=== PATIENT | female | born 1965 | race Caucasian/White ===

== ENCOUNTER 2022-05-28 12:39 | Inpatient (IN) | payer OTHER ==
[~2022-05-28] VITALS: Ht 165.1 cm; Wt 144.7 kg
[2022-05-28 12:42] VITALS: BP_SYST 139
[2022-05-28 13:32] LABS: CALCIUM 8.2 mg/dL (8.4-11.0); CREATININE 0.56 mg/dL (0.55-1.30)
[2022-05-28 13:36] LABS: BASOPHILS % (AUTO) 0.3 % (0.0-2.0); EOSINOPHILS # (AUTO) 0.3 K/uL (0.0-0.4); EOSINOPHILS % (AUTO) 3.4 % (0.0-4.0); HEMATOCRIT 32.4 % (36-48); HEMOGLOBIN 10.5 g/dL (12.0-16.0); LYMPHOCYTES # (AUTO) 0.6 K/uL (1.0-5.5); LYMPHOCYTES % (AUTO) 6.3 % (20.5-51.5); MEAN CORPUSCULAR HEMOGLOBIN 28 pg (27-31); MEAN CORPUSCULAR HGB CONC 32 % (32-36); MEAN CORPUSCULAR VOLUME 85 fL (79.0-98.0); MONOCYTES # (AUTO) 0.7 K/uL (0.0-1.0); MONOCYTES % (AUTO) 7.5 % (1.7-9.3); NEUTROPHILS # (AUTO) 7.5 K/uL (1.8-7.7); NEUTROPHILS % (AUTO) 82.5 % (40.0-70.0); PLATELET COUNT (AUTO) 508 K/uL (130-430); RED BLOOD CELL COUNT(AUTO) 3.81 MIL/uL (4.2-6.2); WHITE BLOOD COUNT (AUTO) 9.2 K/uL (4.8-10.8)
[2022-05-28 13:37] LABS: ALBUMIN 2.2 g/dL (3.4-4.8); TOTAL BILIRUBIN 0.5 mg/dL (0.0-1.0)
[2022-05-28] MEDS ORDERED: PIPERACILLIN/TAZO 3.375 GM in NS 50 ML IV ONE (14:00)
[2022-05-28] MEDS ORDERED: *LOVENOX0.75MG/KG Q12H/PHARMACY XX ONE (15:30)
[2022-05-28] MEDS ORDERED: PIPERACILLIN/TAZOBACTAM 3.375 GM/VIAL (ZOSYN) IV ONE ×2 (16:24→22:05)
[2022-05-28 17:51] LABS: BILIRUBIN,URINE NEGATIVE (NEGATIVE); BLOOD, URINE NEGATIVE (NEGATIVE); CLARITY/URINE CLEAR (CLEAR); COLOR,URINE YELLOW (YELLOW); GLUCOSE,URINE NEGATIVE (NEGATIVE); KETONES,URINE TRACE (NEGATIVE); LEUKOCYTE ESTERASE ,URINE NEGATIVE (NEGATIVE); NITRITE, URINE NEGATIVE (NEGATIVE); PROTEIN URINE NEGATIVE (NEGATIVE); UROBILINOGEN,URINE 0.2 (0.2-1.0)
[2022-05-28] MEDS ORDERED: FUROSEMIDE 20 MG TABLET PO ONE (20:45)
[2022-05-28] MEDS ORDERED: METHYLPREDNISOLONE SOD SUCC 40 MG/ML VIAL IVP ONE (20:45)
[2022-05-28] MEDS: PIPERACILLIN/TAZO 3.375 GM in NS 50 ML IV SCH (22:00)
[2022-05-28] MEDS: ENOXAPARIN SODIUM 80 MG/0.8 ML SYRINGE SUBCUT SCH (22:24)
[2022-05-29] MEDS ORDERED: PIPERACILLIN/TAZOBACTAM 3.375 GM/VIAL (ZOSYN) IV ONE (04:08)
[2022-05-29] MEDS: PIPERACILLIN/TAZO 3.375 GM in NS 50 ML IV SCH ×3 (04:14→15:52)
[2022-05-29 07:18] LABS: BASOPHILS % (AUTO) 0.1 % (0.0-2.0); HEMATOCRIT 32.8 % (36-48); HEMOGLOBIN 10.6 g/dL (12.0-16.0); LYMPHOCYTES # (AUTO) 0.3 K/uL (1.0-5.5); LYMPHOCYTES % (AUTO) 4.2 % (20.5-51.5); MEAN CORPUSCULAR HEMOGLOBIN 28 pg (27-31); MEAN CORPUSCULAR HGB CONC 32 % (32-36); MEAN CORPUSCULAR VOLUME 86 fL (79.0-98.0); MONOCYTES # (AUTO) 0.1 K/uL (0.0-1.0); MONOCYTES % (AUTO) 1.4 % (1.7-9.3); NEUTROPHILS # (AUTO) 7.4 K/uL (1.8-7.7); NEUTROPHILS % (AUTO) 94.3 % (40.0-70.0); PLATELET COUNT (AUTO) 455 K/uL (130-430); RED BLOOD CELL COUNT(AUTO) 3.82 MIL/uL (4.2-6.2); RED CELL DISTRIBUTION WIDTH 16.1 % (9.0-15.0); WHITE BLOOD COUNT (AUTO) 7.8 K/uL (4.8-10.8)
[2022-05-29 08:59] VITALS: BP_SYST 152
[2022-05-29] MEDS: ENOXAPARIN SODIUM 80 MG/0.8 ML SYRINGE SUBCUT SCH ×2 (09:35→22:00)
[2022-05-29] MEDS: FUROSEMIDE 20 MG TABLET PO SCH ×2 (09:36→22:00)
[2022-05-29] MEDS: METHYLPREDNISOLONE SOD SUCC 40 MG/ML VIAL IVP SCH ×2 (09:50→22:00)
[2022-05-29 12:00] VITALS: BP_SYST 155
[2022-05-29] MEDS: AZITHROMYCIN 250 MG in NS 250 ML IV SCH (14:21)
[2022-05-29 16:00] VITALS: BP_SYST 140
[2022-05-29] MEDS ORDERED: AMLO5TAB4 PO (18:05)
[2022-05-29] MEDS ORDERED: PRO40 PO (18:05)
[2022-05-29] MEDS ORDERED: PRED5TAB PO (18:05)
[2022-05-29] MEDS ORDERED: AMOX875T2 PO (18:05)
[2022-05-29] MEDS ORDERED: HYDR200T80 PO (18:05)
[2022-05-29] MEDS ORDERED: LOSA25TA3 PO (18:05)
[2022-05-29] MEDS ORDERED: ASA81 PO (18:05)
[2022-05-29 19:45] VITALS: BP_SYST 131
[2022-05-29] MEDS ORDERED: POTASSIUM CHLORIDE 10 MEQ TAB.PRT.SR PO PRN (21:45)
[2022-05-30 01:32] VITALS: BP_SYST 138
[2022-05-30 06:36] LABS: HEMATOCRIT 31.2 % (36-48); HEMOGLOBIN 10.2 g/dL (12.0-16.0); LYMPHOCYTES # (AUTO) 0.4 K/uL (1.0-5.5); LYMPHOCYTES % (AUTO) 3.6 % (20.5-51.5); MEAN CORPUSCULAR HEMOGLOBIN 28 pg (27-31); MEAN CORPUSCULAR HGB CONC 33 % (32-36); MEAN CORPUSCULAR VOLUME 86 fL (79.0-98.0); MONOCYTES # (AUTO) 0.6 K/uL (0.0-1.0); MONOCYTES % (AUTO) 5.8 % (1.7-9.3); NEUTROPHILS # (AUTO) 10.1 K/uL (1.8-7.7); NEUTROPHILS % (AUTO) 90.6 % (40.0-70.0); PLATELET COUNT (AUTO) 462 K/uL (130-430); RED BLOOD CELL COUNT(AUTO) 3.64 MIL/uL (4.2-6.2); RED CELL DISTRIBUTION WIDTH 15.7 % (9.0-15.0); WHITE BLOOD COUNT (AUTO) 11.2 K/uL (4.8-10.8)
[2022-05-30 07:05] LABS: ALBUMIN 2.1 g/dL (3.4-4.8); CALCIUM 8.4 mg/dL (8.4-11.0); CREATININE 0.67 mg/dL (0.55-1.30); TOTAL BILIRUBIN 0.2 mg/dL (0.0-1.0)
[2022-05-30 08:00] VITALS: BP_SYST 171
[2022-05-30] MEDS: ENOXAPARIN SODIUM 80 MG/0.8 ML SYRINGE SUBCUT SCH ×2 (08:49→21:12)
[2022-05-30] MEDS: METHYLPREDNISOLONE SOD SUCC 40 MG/ML VIAL IVP SCH ×2 (08:49→21:13)
[2022-05-30] MEDS: FUROSEMIDE 20 MG TABLET PO SCH ×2 (08:50→21:13)
[2022-05-30] MEDS ORDERED: amLODIPine BESYLATE 5 MG TABLET PO ONE (12:00)
[2022-05-30] MEDS ORDERED: LOSARTAN POTASSIUM 25 MG TABLET PO ONE (12:00)
[2022-05-30 12:50] VITALS: BP_SYST 151
[2022-05-30] MEDS: FLUCONAZOLE 200 mg/ NS 100 ML IV SCH (13:22)
[2022-05-30] MEDS: AZITHROMYCIN 250 MG in NS 250 ML IV SCH (15:19)
[2022-05-30] MEDS ORDERED: FUROSEMIDE 40 MG/4 ML VIAL IVP ONE (15:30)
[2022-05-30 16:50] VITALS: BP_SYST 110
[2022-05-30 20:20] VITALS: BP_SYST 122
[2022-05-31 01:47] VITALS: BP_SYST 143
[2022-05-31 08:00] VITALS: BP_SYST 147
[2022-05-31] MEDS: ENOXAPARIN SODIUM 80 MG/0.8 ML SYRINGE SUBCUT SCH ×2 (10:09→21:56)
[2022-05-31] MEDS: METHYLPREDNISOLONE SOD SUCC 40 MG/ML VIAL IVP SCH ×2 (10:10→21:57)
[2022-05-31] MEDS: LOSARTAN POTASSIUM 25 MG TABLET PO SCH (10:11)
[2022-05-31] MEDS: FUROSEMIDE 20 MG TABLET PO SCH ×2 (10:11→21:55)
[2022-05-31] MEDS: amLODIPine BESYLATE 5 MG TABLET PO SCH (10:12)
[2022-05-31 12:00] VITALS: BP_SYST 139
[2022-05-31] MEDS: FLUCONAZOLE 200 mg/ NS 100 ML IV SCH (13:54)
[2022-05-31] MEDS: AZITHROMYCIN 250 MG in NS 250 ML IV SCH (14:54)
[2022-06-01 03:20] VITALS: BP_SYST 128
[2022-06-01 08:22] VITALS: BP_SYST 149
[2022-06-01] MEDS: amLODIPine BESYLATE 5 MG TABLET PO SCH (08:55)
[2022-06-01] MEDS: LOSARTAN POTASSIUM 25 MG TABLET PO SCH (08:56)
[2022-06-01] MEDS: METHYLPREDNISOLONE SOD SUCC 40 MG/ML VIAL IVP SCH ×2 (08:56→22:22)
[2022-06-01] MEDS: FUROSEMIDE 20 MG TABLET PO SCH ×2 (08:56→22:05)
[2022-06-01] MEDS: ENOXAPARIN SODIUM 80 MG/0.8 ML SYRINGE SUBCUT SCH ×2 (08:57→22:26)
[2022-06-01] MEDS ORDERED: DOXY100C5 PO (12:38)
[2022-06-01 12:50] VITALS: BP_SYST 159
[2022-06-01] MEDS: FLUCONAZOLE 200 mg/ NS 100 ML IV SCH (14:02)
[2022-06-01] MEDS: AZITHROMYCIN 250 MG in NS 250 ML IV SCH (15:43)
[2022-06-01 17:51] VITALS: BP_SYST 153
[2022-06-01 23:45] VITALS: BP_SYST 156
[2022-06-02 06:31] VITALS: BP_SYST 160
[2022-06-02 08:00] VITALS: BP_SYST 156
[2022-06-02] MEDS: LOSARTAN POTASSIUM 25 MG TABLET PO SCH (09:21)
[2022-06-02] MEDS: amLODIPine BESYLATE 5 MG TABLET PO SCH (09:21)
[2022-06-02] MEDS: METHYLPREDNISOLONE SOD SUCC 40 MG/ML VIAL IVP SCH (09:22)
[2022-06-02] MEDS: FUROSEMIDE 20 MG TABLET PO SCH ×2 (09:22→20:03)
[2022-06-02] MEDS: ENOXAPARIN SODIUM 80 MG/0.8 ML SYRINGE SUBCUT SCH ×2 (09:22→20:03)
[2022-06-02 12:00] VITALS: BP_SYST 161
[2022-06-02] MEDS: FLUCONAZOLE 200 mg/ NS 100 ML IV SCH (13:10)
[2022-06-02 16:21] VITALS: BP_SYST 157
[2022-06-02 16:33] VITALS: BP_SYST 158
[2022-06-02 20:00] VITALS: BP_SYST 152
[2022-06-02] MEDS ORDERED: guaiFENesin ER 600 MG TAB PO SCH (21:00)
[2022-06-02 22:06] LABS: IMMUNOGLOBULIN E,TOTAL 123 IU/mL (6-495)
[2022-06-05 18:06] LABS: ASPERGILLUS FLAVUS Negative (Neg:<1:1); ASPERGILLUS FUMIGATUS Negative (Neg:<1:1)
[2022-06-05 21:06] LABS: MYCOPLASMA PNEUMONIAE IgM <770 U/mL (0-769)
== END 2022-06-02 21:00 | disposition home or self-care (01) | DRG 194 ==
LOC: SED 12:39 → SMU 15:22
PROVIDERS: ADMIT Specialist; ATTEND Specialist
DX: J18.9 Pneumonia, unspecified organism (principal); J90 Pleural effusion, not elsewhere classified; Z68.43 Body mass index [BMI] 50.0-59.9, adult; L08.9 Local infection of the skin and subcutaneous tissue, unspecified; M06.9 Rheumatoid arthritis, unspecified; I10 Essential (primary) hypertension; E66.01 Morbid (severe) obesity due to excess calories; L08.89 Other specified local infections of the skin and subcutaneous tissue; Z20.822 Contact with and (suspected) exposure to COVID-19; Z74.01 Bed confinement status
CPT/HCPCS: 36415; 36600; 71045; 71250-TC; 76376; 76604; 80053; 81003; 82785; 82803-TC; 83605; 83880; 85025; 85379; 85651-TC; 86140; 86606; 86738; 87040; 93005; 93306; 93970; 94640; 94760; 97110-GP; 97112-GP; 97530-GP; 99285; J0456; J0696; J1030; J1450; J1650; J1940; J1956; J2543; J7050; J7060